=== PATIENT | male | born 1945 | race Caucasian/White ===

== ENCOUNTER → 2017-05-28 | Outpatient (CLI) | payer MEDICARE, OTHER | LOC: ROC 11:42 | PROVIDERS: ATTEND Radiology Radiation Oncology | DX: C32.1 Malignant neoplasm of supraglottis (principal); R13.10 Dysphagia, unspecified; R51 Headache; Z87.891 Personal history of nicotine dependence; Z85.21 Personal history of malignant neoplasm of larynx | CPT/HCPCS: G0463 ==

== ENCOUNTER → 2017-06-05 | Outpatient (CLI) | payer MEDICARE, OTHER | END | disposition home or self-care (01) | LOC: PETCFH 07:42 | PROVIDERS: ATTEND Radiology Radiation Oncology | DX: K74.60 Unspecified cirrhosis of liver (principal); R59.1 Generalized enlarged lymph nodes; R16.1 Splenomegaly, not elsewhere classified; C32.1 Malignant neoplasm of supraglottis | CPT/HCPCS: 78815; A9552 ==

== ENCOUNTER → 2017-09-09 | Outpatient (CLI) | payer MEDICARE, OTHER | END | disposition home or self-care (01) | LOC: RAD 09:41 | PROVIDERS: ATTEND Radiology Radiation Oncology | DX: R13.10 Dysphagia, unspecified (principal) | CPT/HCPCS: 74230 ==

== ENCOUNTER → 2017-09-10 | Outpatient (CLI) | payer MEDICARE, OTHER | LOC: ROC 07-03 13:51 | PROVIDERS: ATTEND Radiology Radiation Oncology | DX: Z02.9 Encounter for administrative examinations, unspecified (principal) ==

== ENCOUNTER → 2017-11-05 | Outpatient (CLI) | payer MEDICARE, OTHER | END | disposition home or self-care (01) | LOC: PETCFH 12:26 | PROVIDERS: ATTEND Internal Medicine Hematology & Oncology | DX: C32.1 Malignant neoplasm of supraglottis (principal); R91.8 Other nonspecific abnormal finding of lung field | CPT/HCPCS: 78815; A9552 ==

== ENCOUNTER → 2017-12-11 | Outpatient (CLI) | payer MEDICARE, OTHER ==
[~2017-12-11] MED LIST: OMNIPAQUE 350 MG/ML, 75ML BOTTLE ONE
[2017-12-11 15:55] LABS: CREATININE 0.92 mg/dL (0.7-1.3)
== END | disposition home or self-care (01) ==
LOC: RAD 15:01
PROVIDERS: ATTEND Internal Medicine Hematology & Oncology
DX: R91.1 Solitary pulmonary nodule (principal)
CPT/HCPCS: 36415; 71260; 82565; Q9967

== ENCOUNTER → 2017-12-21 | Outpatient (CLI) | payer MEDICARE, OTHER | END | disposition home or self-care (01) | LOC: ROC 11:39 | PROVIDERS: ATTEND Radiology Radiation Oncology | DX: Z08 Encounter for follow-up examination after completed treatment for malignant neoplasm (principal); C32.1 Malignant neoplasm of supraglottis | CPT/HCPCS: G0463 ==

== ENCOUNTER 2018-02-02 08:51 | Day surgery (SDC) | payer MEDICARE, OTHER ==
[~2018-02-02] VITALS: Ht 175.3 cm; Wt 65.1 kg
[2018-02-02] MEDS ORDERED: LIDOCAINE-MPF 1%, 5ML ONE ×2 (09:22)
[2018-02-02 09:33] VITALS: BP 145/80
[2018-02-02] MEDS ORDERED: SYNTHROID PO (09:38)
[2018-02-02] MEDS ORDERED: OPDIVO (09:38)
[2018-02-02] MEDS ORDERED: PILOCARPINE PO (09:38)
[2018-02-02] MEDS ORDERED: FENTANYL PF 100 MCG/2ML ONE (10:12)
[2018-02-02] MEDS ORDERED: NALOXONE 1 MG/ML, 2ML ONE (10:12)
[2018-02-02] MEDS ORDERED: MIDAZOLAM 1 MG/ML, 5ML ONE (10:12)
[2018-02-02] MEDS ORDERED: FLUMAZENIL 0.1 MG/1 ML, 5ML ONE (10:12)
[2018-02-02] MEDS ORDERED: VISIPAQUE 270 MG/ML, 50ML BOTTLE ONE (10:49)
== END 2018-02-02 13:35 | disposition home or self-care (01) ==
LOC: OUT 08:51
PROVIDERS: ATTEND Surgery
DX: C32.1 Malignant neoplasm of supraglottis (principal); G47.30 Sleep apnea, unspecified; F32.9 Major depressive disorder, single episode, unspecified; Z87.891 Personal history of nicotine dependence
CPT/HCPCS: 49440; 99156; 99157; C1729; C1769; C1894; J2250; J3010; Q9966; J2310

== ENCOUNTER → 2018-03-03 | Outpatient (CLI) | payer MEDICARE, OTHER ==
[~2018-03-03] MED LIST changes: +OPDIVO; +PILOCARPINE PO; +SYNTHROID PO
== END | disposition home or self-care (01) ==
LOC: CFH 13:13
PROVIDERS: ATTEND Internal Medicine Hematology & Oncology
DX: R91.8 Other nonspecific abnormal finding of lung field (principal)
CPT/HCPCS: 71260; Q9967

== ENCOUNTER → 2018-06-14 | Outpatient (CLI) | payer MEDICARE, OTHER ==
[~2018-06-14] MED LIST changes: -OMNIPAQUE 350 MG/ML, 75ML BOTTLE ONE
== END | disposition home or self-care (01) ==
LOC: ROC 09:58
PROVIDERS: ATTEND Radiology Radiation Oncology
DX: C32.1 Malignant neoplasm of supraglottis (principal); K76.6 Portal hypertension; K74.60 Unspecified cirrhosis of liver; R91.8 Other nonspecific abnormal finding of lung field; Z79.899 Other long term (current) drug therapy; Z85.118 Personal history of other malignant neoplasm of bronchus and lung; Z87.891 Personal history of nicotine dependence
CPT/HCPCS: G0463

== ENCOUNTER → 2018-08-11 | Outpatient (CLI) | payer MEDICARE, OTHER ==
[~2018-08-11] MED LIST changes: +OMNIPAQUE 350 MG/ML, 150 ML BOTTLE ONE
== END | disposition home or self-care (01) ==
LOC: CFH 13:52
PROVIDERS: ATTEND Specialist
DX: C13.8 Malignant neoplasm of overlapping sites of hypopharynx (principal); R91.1 Solitary pulmonary nodule; R59.1 Generalized enlarged lymph nodes
CPT/HCPCS: 70491; 71260; 74160; Q9967

== ENCOUNTER → 2018-09-02 | Outpatient (CLI) | payer MEDICARE, OTHER ==
[~2018-09-02] MED LIST changes: +GADOBUTROL 7.5 MMOL/7.5 ML VIAL ONE; -OMNIPAQUE 350 MG/ML, 150 ML BOTTLE ONE
== END | disposition home or self-care (01) ==
LOC: CFH 10:35
PROVIDERS: ATTEND Specialist
DX: C13.8 Malignant neoplasm of overlapping sites of hypopharynx (principal)
CPT/HCPCS: 70553; A9585

== ENCOUNTER → 2018-09-03 | Outpatient (CLI) | payer MEDICARE, OTHER ==
[~2018-09-03] MED LIST changes: -GADOBUTROL 7.5 MMOL/7.5 ML VIAL ONE
== END | disposition home or self-care (01) ==
LOC: ROC 08:03
PROVIDERS: ATTEND Radiology Radiation Oncology
DX: C32.1 Malignant neoplasm of supraglottis (principal); Z85.118 Personal history of other malignant neoplasm of bronchus and lung
CPT/HCPCS: G0463

== ENCOUNTER 2018-09-14 08:57 | Outpatient (CLI) | payer MEDICARE, OTHER | END 2018-09-14 23:59 | disposition home or self-care (01) | LOC: PETCFH 08:57 | PROVIDERS: ATTEND Radiology Radiation Oncology | DX: C78.02 Secondary malignant neoplasm of left lung (principal); C32.1 Malignant neoplasm of supraglottis | CPT/HCPCS: 78815; A9552 ==

== ENCOUNTER 2019-01-06 13:34 | Outpatient (CLI) | payer MEDICARE, OTHER ==
[~2019-01-06 13:34] MED LIST changes: +AMOX1TAB64 PO; +[UNRECOGNIZED DRUG - OTHER]
== END 2019-01-06 23:59 | disposition home or self-care (01) ==
LOC: PETCFH 13:34
PROVIDERS: ATTEND Radiology Radiation Oncology
DX: C78.02 Secondary malignant neoplasm of left lung (principal); C32.1 Malignant neoplasm of supraglottis; R59.1 Generalized enlarged lymph nodes; N21.0 Calculus in bladder; I70.0 Atherosclerosis of aorta
CPT/HCPCS: 78815; A9552

== ENCOUNTER 2019-01-10 10:45 | Outpatient (CLI) | payer MEDICARE, OTHER | END 2019-01-10 23:59 | disposition home or self-care (01) | LOC: ROC 10:45 | PROVIDERS: ATTEND Radiology Radiation Oncology | DX: C78.02 Secondary malignant neoplasm of left lung (principal) | CPT/HCPCS: G0463 ==

== ENCOUNTER → 2019-03-28 | Outpatient (CLI) | payer MEDICARE, OTHER ==
[~2019-03-28] MED LIST changes: +GADOTERATE 7.5 MMOL/15 ML SYR ONE
== END | disposition home or self-care (01) ==
LOC: RAD 13:48
PROVIDERS: ATTEND Specialist
DX: C13.8 Malignant neoplasm of overlapping sites of hypopharynx (principal); G31.9 Degenerative disease of nervous system, unspecified
CPT/HCPCS: 70553; A9575

== ENCOUNTER 2019-04-08 13:01 | Outpatient (CLI) | payer MEDICARE, OTHER ==
[~2019-04-08 13:01] MED LIST changes: -GADOTERATE 7.5 MMOL/15 ML SYR ONE
== END 2019-04-08 23:59 | disposition home or self-care (01) ==
LOC: WOUND 13:01
PROVIDERS: ATTEND Family Medicine
DX: S11.89XA Other open wound of other specified part of neck, initial encounter (principal); L59.8 Other specified disorders of the skin and subcutaneous tissue related to radiation; R21 Rash and other nonspecific skin eruption; C44.42 Squamous cell carcinoma of skin of scalp and neck; K71.7 Toxic liver disease with fibrosis and cirrhosis of liver; E03.9 Hypothyroidism, unspecified; G31.9 Degenerative disease of nervous system, unspecified; G47.30 Sleep apnea, unspecified; F32.9 Major depressive disorder, single episode, unspecified; Z87.891 Personal history of nicotine dependence; Z85.118 Personal history of other malignant neoplasm of bronchus and lung; Z85.89 Personal history of malignant neoplasm of other organs and systems; X58.XXXA Exposure to other specified factors, initial encounter; Y93.89 Activity, other specified; Y92.89 Other specified places as the place of occurrence of the external cause; Y99.8 Other external cause status
CPT/HCPCS: 11042; G0463

== ENCOUNTER → 2019-04-12 | Outpatient (CLI) | payer MEDICARE, OTHER ==
[~2019-04-12] MED LIST changes: +OMNIPAQUE 350 MG/ML, 150 ML BOTTLE ONE
== END | disposition home or self-care (01) ==
LOC: RAD 11:55
PROVIDERS: ATTEND Specialist
DX: C13.8 Malignant neoplasm of overlapping sites of hypopharynx (principal); N20.0 Calculus of kidney; R91.1 Solitary pulmonary nodule; J92.9 Pleural plaque without asbestos; I86.8 Varicose veins of other specified sites; I25.10 Atherosclerotic heart disease of native coronary artery without angina pectoris; M62.89 Other specified disorders of muscle; K11.6 Mucocele of salivary gland; J93.83 Other pneumothorax; K74.60 Unspecified cirrhosis of liver; K76.6 Portal hypertension
CPT/HCPCS: 70491; 71260; 74160; Q9967

== ENCOUNTER → 2019-04-20 | Outpatient (CLI) | payer MEDICARE, OTHER ==
[~2019-04-20] MED LIST changes: -OMNIPAQUE 350 MG/ML, 150 ML BOTTLE ONE
== END | disposition home or self-care (01) ==
LOC: RAD 15:54
PROVIDERS: ATTEND Nurse Practitioner
DX: C13.8 Malignant neoplasm of overlapping sites of hypopharynx (principal); M47.812 Spondylosis without myelopathy or radiculopathy, cervical region; M48.02 Spinal stenosis, cervical region
CPT/HCPCS: 72050

== ENCOUNTER → 2019-04-22 | Outpatient (CLI) | payer MEDICARE, OTHER | END | disposition home or self-care (01) | LOC: WOUND 13:42 | PROVIDERS: ATTEND Nurse Practitioner Family | DX: S11.89XD Other open wound of other specified part of neck, subsequent encounter (principal); L59.8 Other specified disorders of the skin and subcutaneous tissue related to radiation; R21 Rash and other nonspecific skin eruption; C44.42 Squamous cell carcinoma of skin of scalp and neck; K71.7 Toxic liver disease with fibrosis and cirrhosis of liver; E03.9 Hypothyroidism, unspecified; G31.9 Degenerative disease of nervous system, unspecified; G47.30 Sleep apnea, unspecified; F32.9 Major depressive disorder, single episode, unspecified; Z87.891 Personal history of nicotine dependence; Z85.118 Personal history of other malignant neoplasm of bronchus and lung; Z85.89 Personal history of malignant neoplasm of other organs and systems; X58.XXXD Exposure to other specified factors, subsequent encounter | CPT/HCPCS: 97597 ==

== ENCOUNTER 2019-04-29 10:30 | Outpatient (CLI) | payer MEDICARE, OTHER | END 2019-04-29 23:59 | disposition home or self-care (01) | LOC: WOUND 10:30 | PROVIDERS: ATTEND Family Medicine | DX: S11.89XD Other open wound of other specified part of neck, subsequent encounter (principal); L59.8 Other specified disorders of the skin and subcutaneous tissue related to radiation; R21 Rash and other nonspecific skin eruption; C44.42 Squamous cell carcinoma of skin of scalp and neck; K71.7 Toxic liver disease with fibrosis and cirrhosis of liver; E03.9 Hypothyroidism, unspecified; G31.9 Degenerative disease of nervous system, unspecified; G47.30 Sleep apnea, unspecified; F32.9 Major depressive disorder, single episode, unspecified; Z87.891 Personal history of nicotine dependence; Z85.118 Personal history of other malignant neoplasm of bronchus and lung; Z85.89 Personal history of malignant neoplasm of other organs and systems; X58.XXXD Exposure to other specified factors, subsequent encounter | CPT/HCPCS: 97597 ==

== ENCOUNTER → 2019-05-06 | Outpatient (CLI) | payer MEDICARE, OTHER | END | disposition home or self-care (01) | LOC: WOUND 13:43 | PROVIDERS: ATTEND Family Medicine | DX: S11.89XD Other open wound of other specified part of neck, subsequent encounter (principal); L59.8 Other specified disorders of the skin and subcutaneous tissue related to radiation; K71.7 Toxic liver disease with fibrosis and cirrhosis of liver; C44.42 Squamous cell carcinoma of skin of scalp and neck; E03.9 Hypothyroidism, unspecified; G31.9 Degenerative disease of nervous system, unspecified; G47.30 Sleep apnea, unspecified; F32.9 Major depressive disorder, single episode, unspecified; M48.00 Spinal stenosis, site unspecified; I25.10 Atherosclerotic heart disease of native coronary artery without angina pectoris; Z87.891 Personal history of nicotine dependence; Z85.118 Personal history of other malignant neoplasm of bronchus and lung; Z85.89 Personal history of malignant neoplasm of other organs and systems; X58.XXXD Exposure to other specified factors, subsequent encounter; Y84.2 Radiological procedure and radiotherapy as the cause of abnormal reaction of the patient, or of later complication, without mention of misadventure at the time of the procedure | CPT/HCPCS: 97597 ==

== ENCOUNTER 2019-05-13 14:12 | Outpatient (CLI) | payer MEDICARE, OTHER | END 2019-05-13 23:59 | disposition home or self-care (01) | LOC: WOUND 14:12 | PROVIDERS: ATTEND Family Medicine | DX: S11.89XD Other open wound of other specified part of neck, subsequent encounter (principal); C44.42 Squamous cell carcinoma of skin of scalp and neck; L59.8 Other specified disorders of the skin and subcutaneous tissue related to radiation; K71.7 Toxic liver disease with fibrosis and cirrhosis of liver; E03.9 Hypothyroidism, unspecified; I25.10 Atherosclerotic heart disease of native coronary artery without angina pectoris; M48.02 Spinal stenosis, cervical region; M47.812 Spondylosis without myelopathy or radiculopathy, cervical region; I86.8 Varicose veins of other specified sites; G47.30 Sleep apnea, unspecified; F32.9 Major depressive disorder, single episode, unspecified; Z85.118 Personal history of other malignant neoplasm of bronchus and lung; Z87.891 Personal history of nicotine dependence; X58.XXXD Exposure to other specified factors, subsequent encounter; Y84.2 Radiological procedure and radiotherapy as the cause of abnormal reaction of the patient, or of later complication, without mention of misadventure at the time of the procedure | CPT/HCPCS: 97597 ==

== ENCOUNTER → 2019-05-20 | Outpatient (CLI) | payer MEDICARE, OTHER | END | disposition home or self-care (01) | LOC: WOUND 14:02 | PROVIDERS: ATTEND Family Medicine | DX: S11.89XD Other open wound of other specified part of neck, subsequent encounter (principal); C44.42 Squamous cell carcinoma of skin of scalp and neck; L59.8 Other specified disorders of the skin and subcutaneous tissue related to radiation; K71.7 Toxic liver disease with fibrosis and cirrhosis of liver; E03.9 Hypothyroidism, unspecified; I25.10 Atherosclerotic heart disease of native coronary artery without angina pectoris; M48.02 Spinal stenosis, cervical region; M47.812 Spondylosis without myelopathy or radiculopathy, cervical region; I86.8 Varicose veins of other specified sites; G47.30 Sleep apnea, unspecified; F32.9 Major depressive disorder, single episode, unspecified; Z85.118 Personal history of other malignant neoplasm of bronchus and lung; Z85.89 Personal history of malignant neoplasm of other organs and systems; Z87.891 Personal history of nicotine dependence; X58.XXXD Exposure to other specified factors, subsequent encounter; Y84.2 Radiological procedure and radiotherapy as the cause of abnormal reaction of the patient, or of later complication, without mention of misadventure at the time of the procedure | CPT/HCPCS: 97597 ==

== ENCOUNTER 2019-06-03 13:00 | Outpatient (CLI) | payer MEDICARE, OTHER | END 2019-06-03 23:59 | disposition home or self-care (01) | LOC: WOUND 13:00 | PROVIDERS: ATTEND Family Medicine | DX: S11.89XD Other open wound of other specified part of neck, subsequent encounter (principal); C44.42 Squamous cell carcinoma of skin of scalp and neck; L59.8 Other specified disorders of the skin and subcutaneous tissue related to radiation; K71.7 Toxic liver disease with fibrosis and cirrhosis of liver; E03.9 Hypothyroidism, unspecified; I25.10 Atherosclerotic heart disease of native coronary artery without angina pectoris; M48.02 Spinal stenosis, cervical region; M47.812 Spondylosis without myelopathy or radiculopathy, cervical region; I86.8 Varicose veins of other specified sites; G47.30 Sleep apnea, unspecified; F32.9 Major depressive disorder, single episode, unspecified; Z85.118 Personal history of other malignant neoplasm of bronchus and lung; Z85.89 Personal history of malignant neoplasm of other organs and systems; Z87.891 Personal history of nicotine dependence; X58.XXXD Exposure to other specified factors, subsequent encounter; Y84.2 Radiological procedure and radiotherapy as the cause of abnormal reaction of the patient, or of later complication, without mention of misadventure at the time of the procedure | CPT/HCPCS: 97597 ==

== ENCOUNTER 2019-06-17 14:22 | Outpatient (CLI) | payer MEDICARE, OTHER | END 2019-06-17 23:59 | disposition home or self-care (01) | LOC: WOUND 14:22 | PROVIDERS: ATTEND Family Medicine | DX: L59.8 Other specified disorders of the skin and subcutaneous tissue related to radiation (principal); S11.80XD Unspecified open wound of other specified part of neck, subsequent encounter; L98.8 Other specified disorders of the skin and subcutaneous tissue; C44.42 Squamous cell carcinoma of skin of scalp and neck; K71.7 Toxic liver disease with fibrosis and cirrhosis of liver; G47.30 Sleep apnea, unspecified; E03.9 Hypothyroidism, unspecified; F32.9 Major depressive disorder, single episode, unspecified; Z85.118 Personal history of other malignant neoplasm of bronchus and lung; Z87.891 Personal history of nicotine dependence; X58.XXXD Exposure to other specified factors, subsequent encounter; Y84.2 Radiological procedure and radiotherapy as the cause of abnormal reaction of the patient, or of later complication, without mention of misadventure at the time of the procedure | CPT/HCPCS: 97597; 97598 ==

== ENCOUNTER → 2019-06-24 | Outpatient (CLI) | payer MEDICARE, OTHER | END | disposition home or self-care (01) | LOC: WOUND 10:13 | PROVIDERS: ATTEND Family Medicine | DX: S11.89XD Other open wound of other specified part of neck, subsequent encounter (principal); L59.8 Other specified disorders of the skin and subcutaneous tissue related to radiation; C44.42 Squamous cell carcinoma of skin of scalp and neck; K71.7 Toxic liver disease with fibrosis and cirrhosis of liver; G47.30 Sleep apnea, unspecified; E03.9 Hypothyroidism, unspecified; I25.10 Atherosclerotic heart disease of native coronary artery without angina pectoris; M47.812 Spondylosis without myelopathy or radiculopathy, cervical region; I86.8 Varicose veins of other specified sites; M48.00 Spinal stenosis, site unspecified; F32.9 Major depressive disorder, single episode, unspecified; Z85.118 Personal history of other malignant neoplasm of bronchus and lung; Z87.891 Personal history of nicotine dependence; Y84.2 Radiological procedure and radiotherapy as the cause of abnormal reaction of the patient, or of later complication, without mention of misadventure at the time of the procedure; X58.XXXD Exposure to other specified factors, subsequent encounter | CPT/HCPCS: 97597; 97598 ==

== ENCOUNTER → 2019-06-28 | Outpatient (CLI) | payer MEDICARE, OTHER | END | disposition home or self-care (01) | LOC: WOUND 14:32 | PROVIDERS: ATTEND Nurse Practitioner Family | DX: S11.89XD Other open wound of other specified part of neck, subsequent encounter (principal); L59.8 Other specified disorders of the skin and subcutaneous tissue related to radiation; C44.42 Squamous cell carcinoma of skin of scalp and neck; K71.7 Toxic liver disease with fibrosis and cirrhosis of liver; G47.30 Sleep apnea, unspecified; E03.9 Hypothyroidism, unspecified; I25.10 Atherosclerotic heart disease of native coronary artery without angina pectoris; M47.812 Spondylosis without myelopathy or radiculopathy, cervical region; I86.8 Varicose veins of other specified sites; M48.00 Spinal stenosis, site unspecified; F32.9 Major depressive disorder, single episode, unspecified; Z85.118 Personal history of other malignant neoplasm of bronchus and lung; Z85.89 Personal history of malignant neoplasm of other organs and systems; Z87.891 Personal history of nicotine dependence; Y84.2 Radiological procedure and radiotherapy as the cause of abnormal reaction of the patient, or of later complication, without mention of misadventure at the time of the procedure; X58.XXXD Exposure to other specified factors, subsequent encounter | CPT/HCPCS: G0463 ==

== ENCOUNTER → 2019-07-15 | Outpatient (CLI) | payer MEDICARE, OTHER | END | disposition home or self-care (01) | LOC: WOUND 12:59 | PROVIDERS: ATTEND Family Medicine | DX: S11.89XD Other open wound of other specified part of neck, subsequent encounter (principal); L59.8 Other specified disorders of the skin and subcutaneous tissue related to radiation; C44.42 Squamous cell carcinoma of skin of scalp and neck; K71.7 Toxic liver disease with fibrosis and cirrhosis of liver; G47.30 Sleep apnea, unspecified; E03.9 Hypothyroidism, unspecified; I25.10 Atherosclerotic heart disease of native coronary artery without angina pectoris; M47.812 Spondylosis without myelopathy or radiculopathy, cervical region; I86.8 Varicose veins of other specified sites; M48.00 Spinal stenosis, site unspecified; F32.9 Major depressive disorder, single episode, unspecified; Z85.118 Personal history of other malignant neoplasm of bronchus and lung; Z85.89 Personal history of malignant neoplasm of other organs and systems; Z87.891 Personal history of nicotine dependence; Y84.2 Radiological procedure and radiotherapy as the cause of abnormal reaction of the patient, or of later complication, without mention of misadventure at the time of the procedure; X58.XXXD Exposure to other specified factors, subsequent encounter | CPT/HCPCS: G0463 ==

== ENCOUNTER 2019-07-29 10:04 | Day surgery (SDC) | payer MEDICARE, OTHER ==
[~2019-07-29] VITALS: Ht 175.3 cm; Wt 53.0 kg
[2019-07-29] MEDS ORDERED: LIDOCAINE 1%, 20ML ONE (10:23)
[2019-07-29 10:52] VITALS: BP 147/78
[2019-07-29] MEDS ORDERED: CEFAZOLIN PMX 1GM/50ML 50 ML IV STA (10:54)
[2019-07-29] MEDS ORDERED: SODIUM CHLORIDE 0.9% 1,000 ML IV SCH (10:54)
[2019-07-29] MEDS ORDERED: CEFAZOLIN PMX 1GM/50ML 50 ML ONE (11:04)
[2019-07-29] MEDS ORDERED: FENTANYL PF 100 MCG/2ML ONE (11:34)
[2019-07-29] MEDS ORDERED: FLUMAZENIL 0.1 MG/1 ML, 5ML ONE (11:35)
[2019-07-29] MEDS ORDERED: NALOXONE 1 MG/ML, 2ML ONE (11:35)
[2019-07-29] MEDS ORDERED: BENZOCAINE 20% SPRAY 0.5ML ONE (11:35)
[2019-07-29] MEDS ORDERED: MIDAZOLAM 1 MG/ML, 5ML ONE (11:35)
[2019-07-29] MEDS ORDERED: LIDOCAINE GEL 2%, 5ML ONE (11:37)
[2019-07-29] MEDS ORDERED: CEFAZOLIN PMX 1GM/50ML 50 ML IV ONE (12:00)
== END 2019-07-29 12:45 | disposition home or self-care (01) ==
LOC: OUT 10:04 → EDSTATUS 15:30
PROVIDERS: ATTEND Surgery
DX: Z43.1 Encounter for attention to gastrostomy (principal); C76.0 Malignant neoplasm of head, face and neck; G47.30 Sleep apnea, unspecified; E03.9 Hypothyroidism, unspecified; Z85.118 Personal history of other malignant neoplasm of bronchus and lung; Z72.89 Other problems related to lifestyle; Z87.891 Personal history of nicotine dependence; Z98.890 Other specified postprocedural states; Z79.899 Other long term (current) drug therapy; Z79.2 Long term (current) use of antibiotics; Z82.49 Family history of ischemic heart disease and other diseases of the circulatory system
CPT/HCPCS: 49440; J0690; J7030; J2250; J3010; J2310

== ENCOUNTER 2019-08-02 08:58 | Day surgery (SDC) | payer MEDICARE, OTHER ==
[~2019-08-02] VITALS: Ht 172.7 cm; Wt 52.7 kg
[2019-08-02] MEDS ORDERED: LACTATED RINGERS 1,000 ML IV SCH (09:33)
[2019-08-02] MEDS ORDERED: CHLORHEXIDINE 15 ML UDC MM STA (09:33)
[2019-08-02] MEDS ORDERED: POTASSIUM (09:36)
[2019-08-02] MEDS ORDERED: DOXYCYCLINE (09:36)
[2019-08-02] MEDS ORDERED: MAGNESIUM (09:36)
[2019-08-02 09:38] VITALS: BP 132/82
[2019-08-02 10:20] LABS: BASOPHILS # (AUTO) 0.02 x10^3/uL (0-0.1); BASOPHILS % (AUTO) 0 % (0-1); EOSINOPHILS % (AUTO) 1 % (1-7); LYMPHOCYTES # (AUTO) 0.46 x10^3/uL (1-3.4); LYMPHOCYTES % (AUTO) 4 % (22-44); MD NO; MEAN CORPUSCULAR HEMOGLOBIN 30.8 pg (27.5-34.5); MEAN CORPUSCULAR HGB CONC 32.7 g/dL (33.2-36.2); MEAN CORPUSCULAR VOLUME 94.2 fL (81-97); MEAN PLATELET VOLUME 9.4 fL (7.4-10.4); MONOCYTES # (AUTO) 0.61 x10^3/uL (0.2-0.8); MONOCYTES % (AUTO) 6 % (2-9); NEUTROPHILS # (AUTO) 9.24 x10^3/uL (1.8-6.8); NEUTROPHILS % (AUTO) 89 % (42-75); PLATELET COUNT 280 x10^3/uL (130-400); RED BLOOD COUNT 4.92 x10^6/uL (4.38-5.82); RED CELL DISTRIBUTION WIDTH 14.1 % (9.4-14.8)
[2019-08-02 10:32] LABS: ALANINE AMINOTRANSFERASE 15 U/L (12-78); ALBUMIN 2.5 g/dL (3.4-5.0); ANION GAP 14 mmol/L (5-15); CALCIUM 8.2 mg/dL (8.5-10.1); CHLORIDE 103 mmol/L (98-107); CREATININE 0.91 mg/dL (0.7-1.3)
[2019-08-02 10:34] LABS: ALKALINE PHOSPHATASE 159 U/L (45-117); BILIRUBIN,TOTAL 0.6 mg/dL (0.2-1.0); TOTAL PROTEIN 7.9 g/dL (6.4-8.2)
[2019-08-02 10:45] LABS: INTERNATIONAL NORMALIZED RATIO 1.27 (0.93-1.1); PROTHROMBIN TIME 13.5 Seconds (9.6-11.5)
[2019-08-02] MEDS ORDERED: BUPIVACAINE/PF-EPI 0.5% 1:200K ONE (11:33)
[2019-08-02] MEDS ORDERED: MIDAZOLAM 1 MG/ML, 2ML ONE (11:56)
[2019-08-02] MEDS ORDERED: FENTANYL PF 100 MCG/2ML ONE (11:57)
[2019-08-02] MEDS ORDERED: PROPOFOL 10 MG/ML, 20ML ONE (12:01)
[2019-08-02] MEDS ORDERED: CEFAZOLIN 1,000 MG ONE (12:01)
[2019-08-02] MEDS ORDERED: ROCURONIUM 10 MG/ML,10ML ONE (12:01)
[2019-08-02] MEDS ORDERED: GLYCOPYRROLATE 0.2MG/1ML, 5ML ONE (12:01)
[2019-08-02] MEDS ORDERED: SUCCINYLCHOLINE 20 MG/ML, 10ML ONE (12:01)
[2019-08-02] MEDS ORDERED: ONDANSETRON 2MG/ML, 2ML ONE (12:01)
[2019-08-02] MEDS ORDERED: NEOSTIGMINE 1 MG/ML, 10ML ONE (12:01)
[2019-08-02] MEDS ORDERED: DEXAMETHASONE 4 MG/ML, 1ML ONE (12:01)
[2019-08-02] MEDS ORDERED: PHENYLEPHRINE 10 MG/ML ONE (12:01)
[2019-08-02] MEDS ORDERED: MORPHINE SULFATE 4 MG/ML, 1ML ONE (12:55)
[2019-08-02] MEDS ORDERED: MEPERIDINE/PF 25MG/0.5ML IVPush PRN (13:00)
[2019-08-02] MEDS ORDERED: OXYcodone 5 MG/5 ML ORAL.SOL UDC PO PRN (13:00)
[2019-08-02] MEDS ORDERED: morphine SULFATE 10 MG/ML, 1ML IVPush PRN (13:00)
[2019-08-02] MEDS ORDERED: PROMETHAZINE 25 MG/ML, 1ML IVPush PRN (13:00)
[2019-08-02] MEDS ORDERED: FENTANYL PF 100 MCG/2ML IV PRN (13:00)
== END 2019-08-02 15:30 | disposition home or self-care (01) ==
LOC: OUT 08:58
PROVIDERS: ATTEND Surgery
DX: C76.0 Malignant neoplasm of head, face and neck (principal); Z11.59 Encounter for screening for other viral diseases; E03.9 Hypothyroidism, unspecified; Z79.01 Long term (current) use of anticoagulants; Z79.890 Hormone replacement therapy; Z79.899 Other long term (current) drug therapy; Z87.891 Personal history of nicotine dependence; Z85.118 Personal history of other malignant neoplasm of bronchus and lung; Z98.890 Other specified postprocedural states; Z82.49 Family history of ischemic heart disease and other diseases of the circulatory system; Z80.9 Family history of malignant neoplasm, unspecified
CPT/HCPCS: 36415; 43653; 80053; 85025; 85610; 85730; 87635; 93005; B4087; J0330; J0690; J1100; J2250; J2270; J2370; J2405; J2704; J2710; J3010; J7120

== ENCOUNTER 2019-08-09 13:02 | Outpatient (CLI) | payer MEDICARE, OTHER ==
[~2019-08-09 13:02] MED LIST changes: +DOXYCYCLINE; +MAGNESIUM; +POTASSIUM
== END 2019-08-09 23:59 | disposition home or self-care (01) ==
LOC: WOUND 13:02
PROVIDERS: ATTEND Nurse Practitioner Family
DX: S11.89XD Other open wound of other specified part of neck, subsequent encounter (principal); L59.8 Other specified disorders of the skin and subcutaneous tissue related to radiation; C44.42 Squamous cell carcinoma of skin of scalp and neck; K71.7 Toxic liver disease with fibrosis and cirrhosis of liver; G47.30 Sleep apnea, unspecified; E03.9 Hypothyroidism, unspecified; I25.10 Atherosclerotic heart disease of native coronary artery without angina pectoris; M47.812 Spondylosis without myelopathy or radiculopathy, cervical region; I86.8 Varicose veins of other specified sites; M48.00 Spinal stenosis, site unspecified; F32.9 Major depressive disorder, single episode, unspecified; Z85.118 Personal history of other malignant neoplasm of bronchus and lung; Z85.89 Personal history of malignant neoplasm of other organs and systems; Z87.891 Personal history of nicotine dependence; Z79.2 Long term (current) use of antibiotics; Z79.01 Long term (current) use of anticoagulants; Z79.899 Other long term (current) drug therapy; Y84.2 Radiological procedure and radiotherapy as the cause of abnormal reaction of the patient, or of later complication, without mention of misadventure at the time of the procedure; X58.XXXD Exposure to other specified factors, subsequent encounter
CPT/HCPCS: 99214; G0463

== ENCOUNTER 2019-08-29 11:00 | Outpatient (CLI) | payer MEDICARE, OTHER ==
[2019-08-29] MEDS ORDERED: GADOTERATE 7.5 MMOL/15 ML SYR ONE (12:08)
== END 2019-08-29 23:59 | disposition home or self-care (01) ==
LOC: RAD 11:00
PROVIDERS: ATTEND Specialist
DX: C13.8 Malignant neoplasm of overlapping sites of hypopharynx (principal); H70.91 Unspecified mastoiditis, right ear
CPT/HCPCS: 70553; A9575

== ENCOUNTER 2019-08-30 13:05 | Outpatient (CLI) | payer MEDICARE, OTHER | END 2019-08-30 23:59 | disposition home or self-care (01) | LOC: WOUND 13:05 | PROVIDERS: ATTEND Nurse Practitioner Family | DX: S11.89XD Other open wound of other specified part of neck, subsequent encounter (principal); L59.8 Other specified disorders of the skin and subcutaneous tissue related to radiation; C44.42 Squamous cell carcinoma of skin of scalp and neck; K71.7 Toxic liver disease with fibrosis and cirrhosis of liver; G47.30 Sleep apnea, unspecified; E03.9 Hypothyroidism, unspecified; I25.10 Atherosclerotic heart disease of native coronary artery without angina pectoris; M47.812 Spondylosis without myelopathy or radiculopathy, cervical region; I86.8 Varicose veins of other specified sites; M48.00 Spinal stenosis, site unspecified; F32.9 Major depressive disorder, single episode, unspecified; Z85.118 Personal history of other malignant neoplasm of bronchus and lung; Z85.89 Personal history of malignant neoplasm of other organs and systems; Z87.891 Personal history of nicotine dependence; Z79.01 Long term (current) use of anticoagulants; Z79.899 Other long term (current) drug therapy; Z79.2 Long term (current) use of antibiotics; X58.XXXD Exposure to other specified factors, subsequent encounter; Y84.2 Radiological procedure and radiotherapy as the cause of abnormal reaction of the patient, or of later complication, without mention of misadventure at the time of the procedure | CPT/HCPCS: G0463 ==

== ENCOUNTER 2019-09-20 12:47 | Outpatient (CLI) | payer MEDICARE, OTHER ==
[2019-10-10] MEDS ORDERED: MELA5TAB14 PO (09:38)
[2019-10-10] MEDS ORDERED: BISA10SU4 PR (09:38)
[2019-10-10] MEDS ORDERED: POLY17PO5 PO (09:38)
[2019-10-10] MEDS ORDERED: ACET325T26 PO (09:38)
[2019-10-10] MEDS ORDERED: OXYC5TAB3 PO (09:38)
[2019-10-10] MEDS ORDERED: SENN176S NG (09:38)
[2019-10-10] MEDS ORDERED: FERR220E PO (09:38)
== END 2019-09-20 23:59 | disposition home or self-care (01) ==
LOC: WOUND 12:47
PROVIDERS: ATTEND Nurse Practitioner Family
DX: S11.89XD Other open wound of other specified part of neck, subsequent encounter (principal); L59.8 Other specified disorders of the skin and subcutaneous tissue related to radiation; C44.42 Squamous cell carcinoma of skin of scalp and neck; K71.7 Toxic liver disease with fibrosis and cirrhosis of liver; G47.30 Sleep apnea, unspecified; E03.9 Hypothyroidism, unspecified; I25.10 Atherosclerotic heart disease of native coronary artery without angina pectoris; M47.812 Spondylosis without myelopathy or radiculopathy, cervical region; I86.8 Varicose veins of other specified sites; M48.00 Spinal stenosis, site unspecified; F32.9 Major depressive disorder, single episode, unspecified; Z85.118 Personal history of other malignant neoplasm of bronchus and lung; Z85.89 Personal history of malignant neoplasm of other organs and systems; Z87.891 Personal history of nicotine dependence; Z79.2 Long term (current) use of antibiotics; Z79.01 Long term (current) use of anticoagulants; Z79.899 Other long term (current) drug therapy; Y84.2 Radiological procedure and radiotherapy as the cause of abnormal reaction of the patient, or of later complication, without mention of misadventure at the time of the procedure; X58.XXXD Exposure to other specified factors, subsequent encounter
CPT/HCPCS: G0463